=== PATIENT | female | born 1975 | race Caucasian/White ===

== ENCOUNTER 2018-05-23 07:58 | Emergency (ER) | payer BC ==
[2018-05-23 07:58] VITALS: BMI 27.3
[2018-05-23 08:22] VITALS: TEMP 98.9
[2018-05-23] MEDS ORDERED: Tetanus/Diphtheria Toxoids 0.5 ml Syringe IM ONE ×2 (09:21→09:46)
[2018-05-23] MEDS ORDERED: Bacitracin Ointment 30 GM TUBE TOP STA (09:21)
--- NOTE | 2018-05-23 09:22 | C.PDOC ---
History Of Present Illness 42 yo female come in for evaluation of Right thumb pain, swelling gradually developed since yesterday. Pt reports, sustained blunt " non-significant " Right thumb injury and today woke up with Rt thumb swollen, was unable to remove ring. Otherwise, pt denies obvious deformity, skin changes, weakness, sensory or vascular deficits to injured finger. Ambulate to ED for evaluation, not in any apparent distress. Time Seen by Provider: 05/23/18 08:02 Chief Complaint (Nursing): Abnormal Skin Integrity History Per: Patient Past Medical History Reviewed: Historical Data, Nursing Documentation, Vital Signs Vital Signs: Last Vital Signs Temp 98.9 F 05/23/18 08:04 Pulse 91 H 05/23/18 08:04 Resp 18 05/23/18 08:04 BP Pulse Ox 95 05/23/18 08:04 - Medical History PMH: Anxiety, Asthma, HTN, Hypercholesterolemia Denies: Diabetes, Hepatitis, HIV, Seizures, Sexually Transmitted Disease Surgical History: Hernia Repair (2011) - [facility] Procedures COLONOSCOPY (02/02/14) DETOXIFICATION SERVICES FOR SUBSTANCE ABUSE TREATMENT (12/26/15) 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 Constitutional: Negative for: Fever, Chills Musculoskeletal: Positive for: Hand Pain Skin: Negative for: Rash, Lesions, Bruising Neurological: Negative for: Weakness, Numbness Physical Exam - Physical Exam Appears: Well, Non-toxic, No Acute Distress Skin: Normal Color, Warm, No Ecchymosis Extremity: Normal ROM (Right thumb), Tenderness (diffuse to Righ thumb), Capillary Refill (less than 2sec to Right thumb), No Deformity, Swelling (diffuse right thimb distally to ring), Other (ring noted to Rigt thumb, tight, unable to remove) Pulses: Right Radial: Normal Neurological/Psych: Oriented x3, Normal Speech, Normal Motor, Normal Sensation, Normal Reflexes ED Course And Treatment O2 Sat by Pulse Oximetry: 95 (RA) Pulse Ox Interpretation: Normal - Other Rad X-Ray-Right Thumb X-Ray: Viewed By Me, Read By Radiologist Interpretation: Date of service: 05/23/2018. PROCEDURE: Right Thumb radiographs. HISTORY: injury. COMPARISON: None. TECHNIQUE: AP radiograph of the right hand, as well as spot oblique and lateral images of thumb were obtained. FINDINGS: RIGHT THUMB: Unremarkable right 1st digit without acute displaced fracture identified. Remainder of the right hand (as seen on the AP view) grossly unremarkable. JOINTS: No dislocation. SOFT TISSUES: Soft tissue swelling. No evidence of radiopaque foreign body. OTHER FINDINGS: None. IMPRESSION: Soft tissue swelling. Otherwise unremarkable study as above. Progress Note: Ring was removed with assistance of ring cutter. Xray of right thumb review (-)aacute fx or dislocation. On re-eval of Right hand; NATASHA of Right thumb, no neurovascular deficits. tetanus given. Pt advised on care. ref. to F/u with PMD in 2-3 days for re-eavl. return if a ny new chnages. Disposition Counseled Patient/Family Regarding: Diagnosis, Need For Followup, Rx Given - Disposition Referrals: Daniele Navarrete MD [Staff Provider] - Roman Camejo MD [Non-Staff] - Disposition: HOME/ ROUTINE Disposition Time: 09:21 Condition: STABLE Additional Instructions: LIght duty to injured finger Ibuprofen as need for pain Follow up with PMD in 2-3 days for re-evaluation. return to Ed if any worsening or new changes. Instructions: Finger Sprain (DC), Foreign Body in Skin Forms: [facility] (Cuban) - Clinical Impression Clinical Impression: Sprain, finger, Foreign body
[2018-05-23] MEDS ORDERED: Bacitracin 500 Units/gm Oint Foilpak UD ONE (09:43)
[2018-05-23 09:56] VITALS: BP 139/96; PULSE 72; RESP 17
--- NOTE | 2018-05-23 10:19 | RAD ---
Date of service: 05/23/2018 PROCEDURE: Right Thumb radiographs. HISTORY: injury COMPARISON: None. TECHNIQUE: AP radiograph of the right hand, as well as spot oblique and lateral images of thumb were obtained. FINDINGS: RIGHT THUMB: Unremarkable right 1st digit without acute displaced fracture identified. Remainder of the right hand (as seen on the AP view) grossly unremarkable. JOINTS: No dislocation. SOFT TISSUES: Soft tissue swelling. No evidence of radiopaque foreign body. OTHER FINDINGS: None. IMPRESSION: Soft tissue swelling. Otherwise unremarkable study as above.
[2018-05-23 12:49] VITALS: O2SAT 95
== END 2018-05-23 09:56 | disposition home or self-care (01) ==
LOC: C.ER 07:58
DX: S60.351A Superficial foreign body of right thumb, initial encounter (principal); S63.601A Unspecified sprain of right thumb, initial encounter; W49.04XA Ring or other jewelry causing external constriction, initial encounter; E78.00 Pure hypercholesterolemia, unspecified; I10 Essential (primary) hypertension; Z72.0 Tobacco use; Z23 Encounter for immunization

== ENCOUNTER 2018-09-19 16:37 | Outpatient (CLI) | payer BC | END 2018-09-19 16:38 | disposition home or self-care (01) | LOC: C.MAMMO 16:37 | DX: Z12.31 Encounter for screening mammogram for malignant neoplasm of breast (principal) ==